=== PATIENT | female | born 1980 | race Caucasian/White ===

== ENCOUNTER 2018-08-17 06:05 | Day surgery (SDC) | payer BC ==
[~2018-08-17] VITALS: Ht 149.9 cm; Wt 69.9 kg
[2018-08-17] MEDS ORDERED: fentaNYL CITRATE/PF 100 MCG/2 ML AMP IVP ONE (08:00)
[2018-08-17] MEDS ORDERED: BUPIVACAINE /PF 0.25% 30 ML VIAL INJ ONE (08:00)
[2018-08-17] MEDS ORDERED: GLYCOPYRROLATE 0.2 MG/ML VIAL IJ ONE (08:00)
[2018-08-17] MEDS ORDERED: ROCURONIUM BROMIDE 10 MG/ML (ZEMURON) IV ONE (08:00)
[2018-08-17] MEDS ORDERED: BUPIVACAINE /PF 0.5% 30 ML VIAL INJ ONE (08:00)
[2018-08-17] MEDS ORDERED: CEFAZOLIN 2 GM IVPB PREMIX 50 ML IV ONE (08:00)
[2018-08-17] MEDS ORDERED: LR 1,000 ML IV.SOLN IV ONE (08:00)
[2018-08-17] MEDS ORDERED: SEVOFLURANE 15 MIN GAS INH ONE (08:00)
[2018-08-17] MEDS ORDERED: KETOROLAC TROMETHAMINE 30 MG VIAL IVP ONE (08:00)
[2018-08-17] MEDS ORDERED: ONDANSETRON HCL 4 MG/2 ML VIAL IVP ONE (08:00)
[2018-08-17] MEDS ORDERED: PROPOFOL 200MG/ 20ML VIAL (DIPRIVAN) IV ONE (08:00)
[2018-08-17] MEDS ORDERED: LIDOCAINE 2%, 20 ML MDV INJ ONE (08:00)
[2018-08-17] MEDS ORDERED: NEOSTIGMINE METHYLSULFATE 1 MG/ML, 10 ML VIAL IVP ONE (08:00)
[2018-08-17] MEDS ORDERED: MIDAZOLAM HCL 5 MG/5 ML VIAL IVP ONE (08:00)
[2018-08-17] MEDS ORDERED: fentaNYL CITRATE/PF 100 MCG/2 ML AMP IVP PRN ×2 (09:15)
[2018-08-17] MEDS ORDERED: KETOROLAC TROMETHAMINE 30 MG VIAL IVP PRN (09:15)
[2018-08-17] MEDS ORDERED: ONDANSETRON HCL 4 MG/2 ML VIAL IVP PRN ×2 (09:15→10:30)
[2018-08-17] MEDS ORDERED: HYDROcodone/ACETAMIN 5-325 MG TAB (NORCO/ VICODIN) PO PRN (10:30)
[2018-08-17] MEDS ORDERED: OXYCODONE/ACETAMINOPHEN 5-325 TABLET PO PRN ×2 (10:30)
[2018-08-17 13:09] VITALS: BP_SYST 101
[2018-08-17] MEDS ORDERED: HYDROcodone/ACETAMIN 5-325 MG TAB (NORCO/ VICODIN) ONE (13:13)
== END 2018-08-17 15:00 | disposition home or self-care (01) ==
LOC: SDS 06:05 → SMU 06:05 → SDS 15:00
PROVIDERS: ATTEND Specialist
DX: N80.0 Endometriosis of uterus (principal); D27.0 Benign neoplasm of right ovary; Z98.890 Other specified postprocedural states; Z79.899 Other long term (current) drug therapy; Z68.30 Body mass index [BMI] 30.0-30.9, adult
CPT/HCPCS: 58662; 64488; 88305; C1727; J0690; J1885; J2001; J2250; J2405; J2704; J2710; J3010; J3490 ×3; J7120; E0190